=== PATIENT | male | born 1950 | race Asian ===

== ENCOUNTER 2017-05-30 19:23 | Emergency (ER) | payer MEDICARE, OTHER ==
[~2017-05-30] VITALS: Ht 160 cm; Wt 54.5 kg
[2017-05-30] MEDS ORDERED: mineral oil 133ml enema RC STA (20:52)
[2017-05-30] MEDS ORDERED: DOCU-28 PO (20:55)
[2017-05-30] MEDS ORDERED: NA P133E4 RC (20:55)
[2017-05-30] MEDS ORDERED: POLY17PO10 PO (20:55)
[2017-05-30] MEDS ORDERED: BISA10SU60 RC (20:55)
[2017-05-30 21:50] VITALS: BP 130/80
== END 2017-05-30 21:51 | disposition home or self-care (01) ==
LOC: ER 19:24
DX: K59.00 Constipation, unspecified (principal); G20 Parkinson's disease; Z88.8 Allergy status to other drugs, medicaments and biological substances; Z79.899 Other long term (current) drug therapy; Z98.890 Other specified postprocedural states
CPT/HCPCS: 99284

== ENCOUNTER 2018-03-05 16:05 | Emergency (ER) | payer MEDICARE, MEDICAID ==
[~2018-03-05] VITALS: Ht 160 cm; Wt 133.0 kg
[~2018-03-05 16:05] MED LIST: BISA10SU60 RC; DOCU-28 PO
[2018-03-05] MEDS ORDERED: ondansetron/PF 4mg/2ml inj IV ONE (16:20)
[2018-03-05] MEDS ORDERED: normal saline 1000ML IV soln IV ONE (16:20)
[2018-03-05 16:50] LABS: BASOPHILS % (AUTO) 0.3 % (0-1); EOSINOPHILS # (AUTO) 0.2 X10'3 (0-0.9); HEMATOCRIT 43.5 % (42.0-52.0); HEMOGLOBIN 14.4 g/dl (14.0-17.9); LYMPHOCYTES # (AUTO) 1.6 X10'3 (1.1-4.8); MEAN CORPUSCULAR HGB CONC 33.2 % (33.0-36.5); MEAN CORPUSCULAR VOLUME 90.2 FL (78-98); MEAN PLATELET VOLUME 8.6 FL (7.4-10.4); MONOCYTES # (AUTO) 0.5 X10'3 (0-0.9); MONOCYTES % (AUTO) 5.8 % (2-12); NEUTROPHILS # (AUTO) 5.8 X10'3 (1.8-7.7); NEUTROPHILS % (AUTO) 70.9 % (42-75); PLATELET COUNT 221 X10'3 (140-440); RED BLOOD COUNT 4.82 X10'6 (4.70-6.10); RED CELL DISTRIBUTION WIDTH 14.1 % (11.5-14.5); WHITE BLOOD COUNT 8.2 X10'3 (4.5-11.0)
[2018-03-05 16:53] LABS: CLARITY,URINE CLOUDY (Clear); COLOR,URINE YELLOW (Yellow); GLUCOSE, URINE NEGATIVE (Neg); KETONES,URINE NEGATIVE (Neg); LEUKOCYTE ESTERASE ,URINE LARGE (Neg); NITRITES, URINE NEGATIVE (Neg); OCCULT BLOOD,URINE TRACE-LYSED (Neg); PROTEIN,URINE TRACE mg/dl (Neg); UROBILINOGEN,URINE 0.2 E.U/dL (0.2-1.0)
[2018-03-05 16:55] LABS: UA COLLECTION TYPE STRAIGHT CATH
[2018-03-05 17:01] LABS: INR 1.1 INR
[2018-03-05 17:02] LABS: ALANINE AMINOTRANSFERASE 6 U/L (12-78); ALBUMIN 3.4 G/DL (3.4-5.0); ALBUMIN/GLOBULIN RATIO 0.8 (1.1-1.5); ALKALINE PHOSPHATASE 34 IU/L (46-116); ANION GAP 8 (8-16); ASPARTATE AMINO TRANSFERASE 11 U/L (10-37); BILIRUBIN,TOTAL 0.7 MG/DL (0.1-1.0); BLOOD UREA NITROGEN 12 MG/DL (7-18); BUN/CREATININE RATIO 12.8 (5.4-32.0); CALCIUM 8.7 MG/DL (8.5-10.1); CHLORIDE 104 MMOL/L (99-107); CREATININE 0.94 MG/DL (0.60-1.10); GLUCOSE 140 MG/DL (70-104); SODIUM 140 MMOL/L (135-145); TOTAL CARBON DIOXIDE 28.4 MMOL/L (24-32); TOTAL PROTEIN 7.6 G/DL (6.4-8.2); eGFR 80 ML/MIN
[2018-03-05 17:07] LABS: BACTERIA,URINE 1+ /HPF (Neg); MUCUS STRANDS NONE SEEN /LPF (Neg); RBC,URINE 0-2 /HPF (0-2); SQUAMOUS EPITHELIAL CELL,UR NONE SEEN /LPF (FEW); WBC CLUMPS,URINE MANY /HPF (NEGATIVE); WBC,URINE TNTC /HPF (0-4)
[2018-03-05] MEDS ORDERED: CefTRIAXone 2gm/D5W 50ml 50 ML IV ONE (18:05)
[2018-03-05 18:13] VITALS: BP 139/85
[2018-03-05] MEDS ORDERED: CEPH500C5 PO (19:13)
[2018-03-05] MEDS ORDERED: ONDA4TAB12 PO (19:13)
== END 2018-03-05 19:47 | disposition home or self-care (01) ==
LOC: ER 16:06
DX: N39.0 Urinary tract infection, site not specified (principal); R11.2 Nausea with vomiting, unspecified; Z98.890 Other specified postprocedural states; Z60.2 Problems related to living alone; Z88.6 Allergy status to analgesic agent; Z79.899 Other long term (current) drug therapy
CPT/HCPCS: 36415; 71045; 80053; 81001; 83605; 84145; 85025; 85610; 87040; 87077; 87088; 87186; 93005; 96361; 96365; 96375; 99284; J0696; J2405; P9612

== ENCOUNTER 2018-05-02 03:03 | Inpatient (IN) | payer MEDICARE, MEDICAID | END 2018-05-03 15:25 | disposition hospice, home (50) | LOC: ER 03:03 → ED HOLD 04:53 → PCU 3S 06:37 | DX: J69.0 Pneumonitis due to inhalation of food and vomit (principal); J96.90 Respiratory failure, unspecified, unspecified whether with hypoxia or hypercapnia; Z94.1 Heart transplant status ==

== ENCOUNTER 2018-08-20 14:22 | Outpatient (CLI) | payer MEDICARE, MEDICAID ==
[~2018-08-20 14:22] MED LIST changes: +ALPR-624 PO; -BISA10SU60 RC; -DOCU-28 PO; +MYCO250C46 PO; +SINEMET PO; +SYN0.088T PO; +TACR1CAP28 PO; +ZOLP10TA5 PO
[2018-08-20 15:32] LABS: CLARITY,URINE SLIGHTLY CLOUDY (Clear); COLOR,URINE YELLOW (Yellow); GLUCOSE, URINE NEGATIVE (Neg); KETONES,URINE TRACE mg/dl (Neg); LEUKOCYTE ESTERASE ,URINE SMALL (Neg); NITRITES, URINE NEGATIVE (Neg); OCCULT BLOOD,URINE TRACE-INTACT (Neg); PROTEIN,URINE 30 mg/dl (Neg)
[2018-08-20 15:37] LABS: UA COLLECTION TYPE NON-SPECIFIED
[2018-08-20 15:38] LABS: WBC,URINE 50-100 /HPF (0-4)
[2018-08-20 15:39] LABS: BACTERIA,URINE FEW /HPF (Neg); MUCUS STRANDS FEW /LPF (Neg); SQUAMOUS EPITHELIAL CELL,UR FEW /LPF (FEW)
== END 2018-08-20 23:59 | disposition home or self-care (01) ==
LOC: LAB SPEC 14:22
PROVIDERS: ATTEND Internal Medicine
DX: L89.322 Pressure ulcer of left buttock, stage 2 (principal); E11.9 Type 2 diabetes mellitus without complications; G20 Parkinson's disease; E78.00 Pure hypercholesterolemia, unspecified; F32.9 Major depressive disorder, single episode, unspecified; Z79.899 Other long term (current) drug therapy
CPT/HCPCS: 81001; 87077; 87088; 87186

== ENCOUNTER 2019-07-21 11:43 | Outpatient (CLI) | payer MEDICARE, MEDICAID ==
[~2019-07-21 11:43] MED LIST changes: +CARB1TAB45 PO; -MYCO250C46 PO; -SINEMET PO; -SYN0.088T PO; -TACR1CAP28 PO
== END 2019-07-21 23:59 | disposition home or self-care (01) ==
LOC: LAB SPEC 11:43
PROVIDERS: ATTEND Internal Medicine
DX: G20 Parkinson's disease (principal); E11.9 Type 2 diabetes mellitus without complications; L89.152 Pressure ulcer of sacral region, stage 2; Z94.1 Heart transplant status
CPT/HCPCS: 36415; 80197